=== PATIENT | female | born 1955 | race African-American/Black ===

== ENCOUNTER 2019-07-09 14:03 | Inpatient (IN) | payer MEDICARE, OTHER ==
[~2019-07-09] VITALS: Ht 167.6 cm; Wt 138.0 kg
--- OUTSIDE RECORDS SUMMARY | 2019-07-09 14:06 | XMS REPORT ---
Author Author [facility] Address Unknown Phone Unavailable Care Team Providers Care Financial Reporting Advisor Name Role Phone Unavailable Unavailable Payers Payer Name Policy Type Policy Number Effective Date Expiration Date Problems This patient has no known problems. Allergies, Adverse Reactions, Alerts Allergy Name Allergy Type Status Severity Reaction(s) Onset Date Inactive Date Treating Clinician Comments Penicillins DA Active JHON 2012-07-01 00:00:00 Medications This patient has no known medications.
[2019-07-09] MEDS ORDERED: FUROSEMIDE INJ 10 MG/ML 4 ML VIAL IV NR ×2 (14:30→16:30)
[2019-07-09] MEDS ORDERED: ASPIRIN 325 MG TAB PO NR ×2 (14:30→16:30)
[2019-07-09] MEDS ORDERED: METHYLPREDNISOLONE SOD SUCC 125 MG/2ML VIAL IV NR ×2 (14:45→16:30)
[2019-07-09] MEDS ORDERED: ALBUTEROL/IPRATROPIUM 3 ML NEB NEB ONE (14:45)
--- NOTE | 2019-07-09 15:30 | Diagnostic Imaging Report ---
Chest, 1 view, 07/09/2019. History: Shortness of breath. Comparison: None available. Findings: The cardiomediastinal silhouette and pulmonary vasculature are prominent. There is hazy left basilar opacity which obscures the left hemidiaphragm. There are no acute osseous or soft tissue abnormalities. Impression: CHF with left basilar atelectasis/effusion. Signed by: Sea Jim on 07/09/2019 3:26 PM
[2019-07-09 16:25] LABS: BASOPHILS % 0.3 % (0.0-1.0); EOSINOPHILS % 0.2 % (0.0-6.0); HEMATOCRIT 42.6 % (34.2-44.1); HEMOGLOBIN 13.4 g/dL (12.0-16.0); LYMPHOCYTES # (AUTO) 1.5 (1.0-3.2); LYMPHOCYTES % 13.8 % (18.0-39.1); MEAN CORPUSCULAR HEMOGLOBIN 25.7 pg (28-32); MEAN CORPUSCULAR HGB CONC 31.5 g/dL (31-35); MEAN CORPUSCULAR VOLUME 81.6 fL (81-99); MONOCYTES # (AUTO) 0.6 (0.2-0.8); MONOCYTES % 5.4 % (4.4-11.3); NEUTROPHILS # (AUTO) 8.8 (2.1-6.9); NEUTROPHILS % 79.5 % (38.7-80.0); PLATELET COUNT 243 x10e3/uL (140-360); RED BLOOD COUNT 5.22 x10e6/uL (3.6-5.1); RED CELL DISTRIBUTION WIDTH 15.2 % (11.7-14.4)
[2019-07-09 16:39] LABS: INR 0.97; PROTHROMBIN TIME 13.4 seconds (11.9-14.5)
[2019-07-09 16:40] LABS: PARTIAL THROMBOPLASTIN TIME 25.8 seconds (23.8-35.5)
[2019-07-09 16:46] LABS: ALANINE AMINOTRANSFERASE 30 IU/L (0-55); ALBUMIN 3.4 g/dL (3.5-5.0); ALBUMIN/GLOBULIN RATIO 0.9 (0.8-2.0); ALKALINE PHOSPHATASE 70 IU/L (40-150); ANION GAP 14.3 mmol/L (8-16); BLOOD UREA NITROGEN 14 mg/dL (7-26); BUN/CREATININE RATIO 18 (6-25); CALCIUM 9.7 mg/dL (8.4-10.2); CARBON DIOXIDE 29 mmol/L (22-29); CHLORIDE 97 mmol/L (98-107); CREATINE KINASE 82 IU/L (29-168); CREATININE, SERUM 0.78 mg/dL (0.57-1.11); EST GLOMERULAR FILTRATION RATE > 60 ML/MIN (60-); GLUCOSE 165 mg/dL (74-118); POTASSIUM 3.3 mmol/L (3.5-5.1); SODIUM 137 mmol/L (136-145)
[2019-07-09] MEDS: ASPIRIN 325 MG TAB PO SCH (18:44)
--- NOTE | 2019-07-09 18:56 | NUR ---
REPORT GIVEN TO AC HERZOG.
[2019-07-09] MEDS ORDERED: ENOXAPARIN SODIUM INJ 100 MG/ML SYR SC NR (19:00)
[2019-07-09] MEDS ORDERED: ACETAMINOPHEN 325 MG TAB PO PRN (19:45)
[2019-07-09] MEDS ORDERED: ONDANSETRON HCL INJ 2MG/ML 2ML 2 MG/ML VIAL IV PRN (19:45)
[2019-07-09] MEDS ORDERED: HYDRALAZINE HCL 20 MG/ML VIAL IV PRN (19:45)
[2019-07-09] MEDS ORDERED: ACETAMINOPHEN/CODEINE 300MG - 30MG TAB PO PRN (19:45)
[2019-07-09] MEDS: ALBUTEROL/IPRATROPIUM 3 ML NEB NEB SCH ×2 (19:50→23:17)
[2019-07-09] MEDS ORDERED: ALBUTEROL0.63 MG/3 NEB (20:37)
[2019-07-09] MEDS ORDERED: OXYBUTYNIN CHLOR5 M1 PO (20:45)
[2019-07-09] MEDS ORDERED: GLYBURIDE5 MG PO (20:45)
[2019-07-09] MEDS ORDERED: ASPIR 8181 MG PO (20:45)
[2019-07-09] MEDS ORDERED: AMLODIPINE BESY10 MG PO (20:45)
[2019-07-09] MEDS ORDERED: PREDNISONE10 MG PO (20:45)
[2019-07-09] MEDS ORDERED: PRAVASTATIN SOD20 MG PO (20:45)
[2019-07-09] MEDS ORDERED: DIOVAN HCT 3201 EACH PO (20:45)
[2019-07-09] MEDS ORDERED: METFORMIN HCL1000 MG PO (20:45)
[2019-07-09] MEDS ORDERED: PIOGLITAZONE HC30 MG PO (20:45)
--- NOTE | 2019-07-09 20:45 | NUR ---
CT UNABLE TO DO CT WITH CURRENT IV. INSERTED 20G RACF WITH US GUIDANCE. TOLERATED WELL
[2019-07-09 21:19] VITALS: BP 158/77
--- NOTE | 2019-07-09 21:19 | NUR ---
Received patient from CT with Loi from radiology at bedside. Patient in stretcher, alert and oriented, follows commands.
[2019-07-09 21:32] VITALS: BP 158/77
[2019-07-09] MEDS ORDERED: IOPAMIDOL 370 MG/ML 200 ML INFUS..BTL INJ ONE (21:36)
[2019-07-09] MEDS ORDERED: SODIUM CHLORIDE 0.9% 50ML 50 ML ONE (21:36)
[2019-07-09 21:51] VITALS: BP 158/77
--- NOTE | 2019-07-09 21:54 | Diagnostic Imaging Report ---
CT CHEST WITH CONTRAST HISTORY: sob r/o pe, COPD, cough COMPARISON: None TECHNIQUE: CT scan of the chest WITH intravenous contrast, using a PE protocol. Coronal and sagittal reformats are provided. IV CONTRAST: 100 cc of Isovue-370. RADIATION DOSE: Total DLP: 609.82 mGy*cm Dose modulation, iterative reconstruction, and/or weight based adjustment of the mA/kV was utilized to reduce the radiation dose to as low as reasonably achievable. COMPLICATIONS: None FINDINGS: Soft tissue attenuation and suboptimal opacification of the pulmonary artery partially limits the evaluation. Lines/tubes: None. Lungs and Airways: Low lung volumes result in bibasilar vascular crowding, accentuation of the pulmonary interstitial markings, central pulmonary vasculature, and the cardiac silhouette. Allowing for these limitations, the findings are as follows: Left lower lobe predominant atelectasis. Pleura: Small nonspecific left pleural effusion. No pneumothorax. Heart and mediastinum: The thyroid gland is normal. Moderate to large low-density pericardial effusion. No CT evidence of right heart strain. Abdomen: Limited evaluation of the upper abdomen. Metallic clips in the right upper quadrant of the abdomen are compatible with prior cholecystectomy. Lymph nodes: No pathologically enlarged lymph node identified. Vessels: Enlargement of the central pulmonary arteries. Suboptimal opacification of the pulmonary arteries, especially the segmental and subsegmental branches. Questionable filling defects within multiple segmental and subsegmental branches, contracts representative examples include: Right: * Upper lobe (series 2 image 32). * Upper lobe (series 2 image 35). * Lower lobe (series 2 image 47). * Middle lobe (series 2 image 52). Left: * Upper lobe (series 2 image 20). Bones: No acute osseous lesion is identified. Soft tissues: Unremarkable IMPRESSION: 1. Suboptimal evaluation secondary to soft tissue attenuation and suboptimal opacification of the pulmonary arteries. 2. Suspected segmental and subsegmental pulmonary emboli, no evidence of associated right heart strain. 3. Moderate to large pericardial effusion. An echocardiogram may be warranted to evaluate heart function. 4. Enlargement of pulmonary arteries, suggestive of pulmonary arterial hypertension. Discussed with Dr. Benitez via phone on July 09, 2019 at 0910. The provider verbalizes an understanding. Signed by: Dr. Jarod Arzola D.O., M.M.M. on 07/09/2019 9:51 PM
--- NOTE | 2019-07-09 22:12 | NUR ---
2204- Read back CTA results to Deloris Marcial NP. Order received to consult Dr. José. No other orders received. 2207- Notified Dr. José of new consult, patient's condition, and CTA results. Orders received for Lovenox Q12 to start in AM.
[2019-07-10] VITALS (38 sets, daily range): BP systolic 107–153; BP diastolic 63–137
[2019-07-10 00:59] LABS: CREATINE KINASE MB 1.5 ng/mL (0-5.0)
[2019-07-10] MEDS ORDERED: DILTIAZEM HCL 5 MG/ML 5 ML VIAL IV STA (01:01)
[2019-07-10] MEDS ORDERED: DILTIAZEM HCL IV 5MG/ML 25 ML VIAL ONE (01:24)
[2019-07-10] MEDS ORDERED: SODIUM CHLORIDE 0.9% 100 ML ONE (01:25)
[2019-07-10] MEDS: DILTIAZEM HCL 125 ML IV SCH ×4 (01:35→02:38)
--- NOTE | 2019-07-10 01:39 | NUR ---
0052- Patient's HR up to 170. oil dispatcher, Peggy, and self at bedside. Patient denies chest pain, SOB, discomfort. STAT EKG done, read afib with RVR. 0058- Dr. José notified of rhythm change, HR, vitals, and patient condition. Orders received for cardizem.
--- NOTE | 2019-07-10 02:11 | NUR ---
Dr. José notified of HR sustaining 140s-150s after initiation of cardizem gtt. Order received for amiodarone gtt.
[2019-07-10] MEDS ORDERED: AMIODARONE HCL 150 MG/100 ML BAG IV ONE (02:15)
[2019-07-10] MEDS ORDERED: AMIODARONE HCL 900 MG in DEXTROSE 5% 500ML 500 ML IV ONE (02:15)
[2019-07-10] MEDS ORDERED: AMIODARONE 900MG 500 ML IV ONE (02:19)
[2019-07-10] MEDS ORDERED: AMIODARONE HCL 100 ML IV ONE (02:19)
--- NOTE | 2019-07-10 02:44 | NUR ---
Loading dose of amiodarone given. Amio maintenance gtt started at 0232. Pt converted back to SR at 0243.
[2019-07-10] MEDS: ALBUTEROL/IPRATROPIUM 3 ML NEB NEB SCH ×4 (02:45→15:24)
[2019-07-10] MEDS ORDERED: AMIODARONE 900MG 500 ML IV SCH ×2 (03:00→09:01)
[2019-07-10] MEDS ORDERED: METHYLPREDNISOLONE SOD SUCC 125 MG/2ML VIAL IV SCH (03:00)
[2019-07-10 03:37] LABS: BASOPHILS % 0.1 % (0.0-1.0); HEMATOCRIT 35.2 % (34.2-44.1); HEMOGLOBIN 11.2 g/dL (12.0-16.0); LYMPHOCYTES # (AUTO) 0.6 (1.0-3.2); LYMPHOCYTES % 6.2 % (18.0-39.1); MEAN CORPUSCULAR HEMOGLOBIN 25.5 pg (28-32); MEAN CORPUSCULAR HGB CONC 31.8 g/dL (31-35); MEAN CORPUSCULAR VOLUME 80.2 fL (81-99); MONOCYTES # (AUTO) 0.3 (0.2-0.8); MONOCYTES % 2.9 % (4.4-11.3); NEUTROPHILS # (AUTO) 7.9 (2.1-6.9); NEUTROPHILS % 89.9 % (38.7-80.0); PLATELET COUNT 233 x10e3/uL (140-360); RED BLOOD COUNT 4.39 x10e6/uL (3.6-5.1); RED CELL DISTRIBUTION WIDTH 14.7 % (11.7-14.4)
[2019-07-10 03:56] LABS: B-TYPE NATRIURETIC PEPTIDE2 108.2 pg/mL (0-100)
[2019-07-10 03:57] LABS: BLOOD UREA NITROGEN 16 mg/dL (7-26); BUN/CREATININE RATIO 21 (6-25); CALCIUM 8.8 mg/dL (8.4-10.2); CARBON DIOXIDE 29 mmol/L (22-29); CHLORIDE 95 mmol/L (98-107); CREATININE, SERUM 0.75 mg/dL (0.57-1.11); EST GLOMERULAR FILTRATION RATE > 60 ML/MIN (60-); GLUCOSE 313 mg/dL (74-118); MAGNESIUM 1.9 MG/DL (1.3-2.1); SODIUM 135 mmol/L (136-145)
[2019-07-10 04:22] LABS: FREE T4 (FREE THYROXINE) 1.34 ng/dL (0.8-1.8); THYROID STIMULATING HORMONE 0.129 uIU/mL (0.350-4.940)
--- NOTE | 2019-07-10 08:08 | NUR ---
Dr Sherlyn José to bedside. Consult called to Dr Cheek.
[2019-07-10] MEDS ORDERED: DEXTROSE 50% SYRINGE 50 ML IV PRN (08:45)
[2019-07-10] MEDS ORDERED: METFORMIN HCL 500 MG TAB PO SCH (09:00)
[2019-07-10] MEDS: ASPIRIN 325 MG TAB PO SCH (09:00)
[2019-07-10] MEDS ORDERED: LISINOPRIL 10 MG TAB PO SCH (09:00)
[2019-07-10] MEDS ORDERED: PRAVASTATIN 20 MG TAB PO SCH (09:00)
[2019-07-10] MEDS ORDERED: HYDROCHLOROTHIAZIDE 25 MG TAB PO SCH (09:00)
[2019-07-10] MEDS ORDERED: FUROSEMIDE INJ 10 MG/ML 4 ML VIAL IV SCH (09:00)
[2019-07-10] MEDS ORDERED: ENOXAPARIN SODIUM INJ 100 MG/ML SYR SC SCH (09:00)
[2019-07-10] MEDS ORDERED: VALSARTAN 160 MG TAB PO SCH (09:00)
[2019-07-10] MEDS ORDERED: OXYBUTYNIN CHLORIDE XL 5 MG TAB PO SCH (09:00)
[2019-07-10] MEDS ORDERED: LORAZEPAM INJ 2 MG/ML VIAL IV PRN (09:15)
[2019-07-10 09:40] LABS: CREATINE KINASE MB 2.2 ng/mL (0-5.0)
--- NOTE | 2019-07-10 10:13 | NUR ---
Dr Sutton to bedside; contacted Dr Reyes.
[2019-07-10] MEDS: FAMOTIDINE 20 MG TAB PO SCH ×2 (10:17→15:51)
[2019-07-10 10:59] LABS: FREE T4 (FREE THYROXINE) 1.49 ng/dL (0.8-1.8); THYROID STIMULATING HORMONE 0.091 uIU/mL (0.350-4.940)
[2019-07-10] MEDS ORDERED: POTASSIUM CHLORIDE 20MEQ/100ML 100 ML IV ONE (11:00)
--- NOTE | 2019-07-10 12:01 | NUR ---
dr waters calls, states he has spoken to dr. jacobson and he agrees to transfer. case management order to transfer downto entered under dr. jacobson
--- NOTE | 2019-07-10 12:27 | NUR ---
Received order to transfer to [facility]. Per AC Recinos, transfer has been initiated by Dr. Reyes. called and spoke to [facility] [phone], who confirmed that transfer has been initiated. They are still processing the transfer request.
--- NOTE | 2019-07-10 14:03 | Progress Note ---
DATE: 07/10/2019 The patient's echo was done bedside, is not noted in the reading station. Echocardiogram shows a large pericardial effusion and mild right ventricular inversion. The effusion is predominantly on the left ventricular side. It is about 2.8 cm and the patient's left ventricular ejection fraction is 50%. A CT scan also shows a large pericardial effusion and also the patient got multiple pulmonary emboli and I discussed with the radiologist at [facility]. It is positive for pulmonary emboli and also a large pericardial effusion. Clinically, the patient has 10 mm pulsus paradoxus, but clinically the patient is stable at this time; however, the patient needs to start on IV heparin and we cannot do it at this time because of the effusion and impending cardiac tamponade, so I discussed with Dr. iNcholas Reyes, her cardiovascular surgeon. She needs subcostal window and we need to continue IV heparin for the pulmonary emboli. The patient was in atrial fibrillation. At this time, the patient is in sinus rhythm. I held the anticoagulants. We will make a decision about subcostal window and starting IV heparin once decision is made whether it is going to be done in this hospital or transfer to [facility]. I already discussed with Dr. Bernardo José and also I am going to discuss with Dr. Reyes. MD DEBBIE Bucio/ALYSSA /[id number]
[2019-07-10] MEDS: INSULIN LISPRO 100 UNIT/1 ML 3ML VIAL SQ SCH ×2 (14:10→17:01)
--- NOTE | 2019-07-10 14:23 | Consultation ---
DATE OF CONSULTATION: Pulmonary Critical Care Consultation CHIEF COMPLAINT: Dyspnea and rapid heart rate. HISTORY OF PRESENT ILLNESS: The patient is a 64-year-old woman. She has a history of asthma that has been controlled with a rescue inhaler. About 7 to 10 days ago, she went to see her primary physician, Dr. Rosales, with worsening dyspnea. She went for an ultrasound of the heart, which showed some pericardial effusion as well as an x-ray, which showed some fluid in the bottom of her lungs. She was subsequently referred to a waiter/waitress dining car downtown. She received steroids for the pericardial effusion, but did not improve. She came to the emergency department complaining of worsening dyspnea and cough. The emergency department physician did a CT scan of the chest that showed possible pulmonary emboli. She was started on anticoagulation. She subsequently developed a rapid atrial fibrillation and required Cardizem followed by amiodarone. PAST SURGICAL HISTORY: 1. Status post appendectomy. 2. Status post cholecystectomy. 3. Status post hysterectomy. 4. Status post tonsillectomy. SOCIAL HISTORY: The patient quit smoking 35 years ago. She is not an active drinker. PAST MEDICAL HISTORY: 1. Hypertension. 2. Diabetes. 3. Elevated cholesterol. 4. History of intermittent asthma. REVIEW OF SYSTEMS: The patient is afebrile. The blood pressure is 137/73 and the pulse rate is 90. The saturation is 91%. The patient does on a high-flow nasal cannula. No fever. No headaches. No neck pain. The patient did have some dyspnea as noted above. There is some mild cough. There is no chest pain. She has no abdominal pain. There is no nausea or vomiting. She has no leg edema. She has no focal neurological complaints. PHYSICAL EXAMINATION: VITAL SIGNS: The blood pressure is 137/73 and the pulse is 90. Saturation is 94% on a high-flow nasal cannula. HEENT: Shows no facial swelling or erythema. The oropharynx is normal. LYMPHATIC: Shows no submandibular, cervical, or supraclavicular adenopathy. CARDIAC: Reveals an irregularly irregular rhythm with normal S1 and S2. LUNGS: Auscultation of lungs reveals crackles at the bases. There is no wheezing. ABDOMEN: Soft and nontender. There is no rebound or guarding. EXTREMITIES: Shows 2+ leg edema bilaterally. NEUROLOGICAL: Shows no focal abnormalities. LABORATORY DATA: The white blood cell count is 8.3 and hemoglobin is 11.2. The platelet count is 233. The BUN to creatinine ratio is normal. The potassium is 3.0. The other electrolytes within normal limits. The BNP is 108. RADIOGRAPHIC DATA: CT scan of the chest shows suspected segmental and subsegmental pulmonary emboli with no evidence of right heart strain as well as a [id number] pericardial effusion. IMPRESSION: 1. Pulmonary emboli. 2. Pericardial effusion of unclear etiology. 3. New onset atrial fibrillation with a rapid ventricular rate. 4. Hypertension. 5. History of intermittent asthma. 6. Diabetes. PLAN: 1. The patient will be continued on amiodarone as well as Lovenox. 2. Await results of echocardiogram and Cardiology consultation. 3. The patient should remain on anticoagulation for 6 months for the suspected pulmonary emboli. At that time, she can be evaluated for discontinuation of the blood thinner. 4. Continue bronchodilators. 5. Monitor blood sugars and treat as needed. Bernardo José MD [facility]/ALYSSA /[id number]
[2019-07-10] MEDS ORDERED: METHYLPREDNISOLONE SOD SUCC 40 MG/ML VIAL 1ML IV SCH (15:00)
--- NOTE | 2019-07-10 17:48 | NUR ---
MOT initiated and placed on chart.
--- NOTE | 2019-07-10 18:14 | Consultation ---
DATE OF CONSULTATION: 07/10/2019 Cardiology Consultation Thank you, Dr. José, for this Cardiology consultation. The patient is seen by Dr. José and the consultation is given to me to evaluate the cardiac status. The patient is seen in ICU bed 196. The patient admitted with shortness of breath for 2 weeks duration. According to her, it has become slowly increasing shortness of breath and also become anxious. She is not a usually anxious person, I believe. She just retired from working in the [employer] an [employer] and the patient is morbidly obese, weighing about 330 pounds only. The medical history patient got a COPD and getting some bronchodilator, Symbicort. The patient had no other medical conditions, and possibly she has hypertension. The patient has no history of chest pain, myocardial infarction, or symptoms of congestive heart failure. Previous surgeries include appendectomy, tonsillectomy, gallbladder surgery, and hysterectomy. The patient does not have any symptoms related to the abdomen or neurological status. EKGs came with atrial fibrillation. The patient given IV amiodarone. When I saw in the ICU the patient at this time, sinus rhythm. The patient's blood pressure about 130/80. The patient got pulses paradox about 10 mmHg by manual blood pressure reading. Lungs, few rales and rhonchi present. There is no pericardial rub. Heart, by chest x-ray is moderately large. CAT scan was performed of the chest that shows moderate large pericardial effusion. The patient has 1+ pedal edema. EKG does not show acute ischemic changes. Renal functions are normal. PT, PTT, INR and platelets are normal. At this time, I had the Lovenox. No Lovenox was given. However, the patient is sinus rhythm at this time. Echocardiogram is ordered. IMPRESSION: The patient has a moderate large pericardial effusion on CAT scan with increasing shortness of breath and pulse paradox 10 mm. We have to evacuate the pericardial fluid. The patient is a subcostal window because morbidly obese. At this time, the patient does not have acute heart cardiac tamponade, but she is on the verge of tamponading features are present like a little tachypnea. Heart rate 95 per minute, and pulse paradox 10 mmHg. I discussed with Dr. Bernardo José. At this time, Dr. Nicholas Reyes was contacted, informed him for cardiovascular consultation. He said he will see the patient. We kept the patient n.p.o. Further treatment is as per Dr. Nicholas Reyes. I have not read the echocardiogram. I just ordered it. I also ordered thyroid function test and the patient's potassium was low. We are replacing 20 mEq of potassium. We will continue IV amiodarone for the time being. Thank you, Dr. José, for consultation. DIAGNOSES: 1. Moderate large pericardial effusion. 2. History of asthma and chronic obstructive pulmonary disease. 3. Morbidly obese. The patient is hemodynamically stable at this time. MD DEBBIE Bucio/ALYSSA /[id number]
--- NOTE | 2019-07-10 18:35 | NUR ---
Patient transferred to [facility] via stretcher on O2 via nasal cannula and Amio gtt.
[2019-07-11] MEDS ORDERED: PRAVASTATIN 20 MG TAB PO SCH (21:00)
== END 2019-07-10 18:24 | disposition short-term general hospital (02) | DRG 314 ==
LOC: ER 14:03 → ERHOLD 19:00 → ICU 21:12
PROVIDERS: ADMIT Internal Medicine; ATTEND Internal Medicine
DX: I31.3 Pericardial effusion (noninflammatory) (principal); I26.99 Other pulmonary embolism without acute cor pulmonale; J90 Pleural effusion, not elsewhere classified; Z68.42 Body mass index [BMI] 45.0-49.9, adult; I31.4 Cardiac tamponade; I48.91 Unspecified atrial fibrillation; Z79.01 Long term (current) use of anticoagulants; I10 Essential (primary) hypertension; E78.5 Hyperlipidemia, unspecified; E11.9 Type 2 diabetes mellitus without complications; E87.6 Hypokalemia; J44.9 Chronic obstructive pulmonary disease, unspecified; E66.01 Morbid (severe) obesity due to excess calories; J45.20 Mild intermittent asthma, uncomplicated
CPT/HCPCS: 36415; 71045; 71260; 80048; 80053; 82550; 82553; 82948; 83036; 83735; 83880; 84436; 84439; 84443; 84484; 85025; 85379; 85610; 85730; 93005; 93306; 94640; 94660; 99284; J1650; J1940; J2920; J2930; J3480; J7050; Q9967